=== PATIENT | male | born 1960 | race Caucasian/White ===

== ENCOUNTER 2017-12-08 15:00 | Outpatient (RCR) | payer BC, SELFPAY ==
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
--- NOTE | 2017-12-08 15:35 | HP.PTDCSUM_ITS ---
HP - PT D/C Summary It has been my pleasure to treat LUAN SOUSA under orders from CLARENCE ROSARIO , for the diagnosis of LUMBAR DDD AND SPONDYLOSIS. CERVCICAL DDD AND RADICULOPATHY. for a total of 7 visit(s). Discharge Date: 12/08/17 Please see the following information for a summary of their discharge status. - Subjective Subjective: PATIENT REPORTS HE IS THE SAME OVER-ALL. HER REPORTS HIS NECK AND BACK ARE NO BETTER AND NO WORSE SINCE STARTING PT. - Pain NECK Pain Intensity (Out of 10): 7 LOW BACK Pain Intensity (Out of 10): 7 BLEs Pain Intensity (Out of 10): 5 - Objective Objective/Function: NO SIGNIFICANT OBJECTIVE CHANGES SEEN WITH TESTING COMPARED TO INITIAL EVAL. THERE IS ALSO NO CHANGE IN THE NECK OR BACK OSWESTRY FUNCTIONAL SCREEN SCORES. THERE IS NO HARM IN PATIENT CONTINUING THE CURRENT EX 'S INDEP'LY HOWEVER HE IS NOT IMPROVING AND PHYSICIAN REASSESSMENT IS RECOMMENDED. - Goals Goal 1:: DECREASE C/O NECK PAIN Goal Progress: Not Progressing Goal 2:: DECREASE C/O LOW BACK PAIN Goal Progress: Not Progressing Goal 3:: IMPROVE PERSONAL CARE, LIFTING, WALKING, SITTING, STANDING, SLEEP, SOCIAL LIFE, TRAVEL, EMPLOYMENT/HOMEMAKING, READING, DRIVING AND RECREATIONAL FUNCTION. Goal Progress: Not Progressing Goal 4:: INSTRUCT IN PROPHYLAXIS Goal Progress: Not Progressing - Plan Plan: D/C DUE TO LACK OF PROGRESS. - D/C Information If there are questions or concerns regarding this patient's physical therapy, please feel free to call me at [phone]. Thank you for the referral of this patient. Sincerely, Pearl Barrientos
== END 2017-12-08 19:00 | disposition home or self-care (01) ==
LOC: PT 15:00
PROVIDERS: Family Provider Family Medicine; PCP Family Medicine
DX: M47.816 Spondylosis without myelopathy or radiculopathy, lumbar region (principal); M51.36 Other intervertebral disc degeneration, lumbar region; G89.4 Chronic pain syndrome; M54.12 Radiculopathy, cervical region; M50.30 Other cervical disc degeneration, unspecified cervical region; M46.92 Unspecified inflammatory spondylopathy, cervical region; M96.1 Postlaminectomy syndrome, not elsewhere classified
CPT/HCPCS: 97113; 97162; 97530

== ENCOUNTER 2021-05-28 10:30 | Outpatient (RCR) | payer BC, SELFPAY ==
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
--- NOTE | 2021-06-30 14:07 | HP.PT.NRP ---
LUAN SOUSA was seen in my office for initial evaluation on 05/19/21. The following Plan of Care was established for this patient: Initial Frequency: 2-3x /Week Initial Duration: 2-4 Weeks Patient/Client Instruction: Educate patient on: Condition, Plan of Care, Risk Factors For the Purpose of:: To improve self management Therapeutic Exercise to Include: Strength training, Body mechanics, Postural training, Flexibilty training, Neuromotor development, Scapular Strength/Stabilization For the Purpose of:: To decrease pain, To improve muscle performance and motor function, To increase tolerance to activity/condition/position, To improve ability of physical actions for home/community/work/leisure This patient was last seen in our office . Pertinent comments regarding their Physical therapy will appear below: This patient has not returned to Physical Therapy and is appropriate to return to MD for further follow-up as needed. At this point I will be discontinuing this patient from physical therapy. I would be happy to see this patient again in the future if found appropriate by the physician. Thank you! Pearl Barrientos, PT, Cert MDT Balance/Gait/Functional tests - Balance/Special Test Scores Oswestry Neck Score: 38
== END 2021-05-28 19:00 | disposition home or self-care (01) ==
LOC: PT 10:30
PROVIDERS: PCP Family Medicine
DX: M54.2 Cervicalgia (principal); R51.9 Headache, unspecified; G89.29 Other chronic pain
CPT/HCPCS: 97162; 97530